=== PATIENT | female | born 1955 | race Caucasian/White ===

== ENCOUNTER 2018-06-11 09:56 | Emergency (ER) | payer MEDICARE ==
--- NOTE | 2018-06-11 11:11 | RAD ---
RIGHT ANKLE 3 VIEWS: Date: 06/11/18 INDICATION: Traumatic pain. FINDINGS: There is asymmetric soft tissue prominence of the lateral aspect of the right ankle. There is no disc rete evidence for displaced fracture. Calcaneal enthesophyte formation is seen. IMPRESSION: Asymmetric mild soft tissue prominence of the lateral aspect of the right ankle without underlying di splaced fracture. If findings persist, suggest short-term follow-up in 5-7 days to exclude an occult injury. POS: [facility]
--- NOTE | 2018-06-11 11:15 | RAD ---
AP PELVIS: Date: 06/11/18 INDICATION: Trauma with pelvic pain. FINDINGS: No definite displaced pelvic fracture is evident. There is mild degenerative change of both hips. IMPRESSION: No acute osseous abnormality. POS: [facility]
--- NOTE | 2018-06-11 11:17 | RAD ---
4 VIEWS LEFT KNEE: Date: 06/11/18 HISTORY: Post-traumatic pain. COMPARISON: None. FINDINGS: Small suprapatellar effusion. Mild degenerative changes of the patellofemoral compartment and lateral compartment. Medial compartment is intact. The lateral margin of the tibial plateau appears to be slightly demineralized and possibly irregular. The possibility of a cortical irregularity/injury cannot be excluded. Further interrogation with CT is recommended to evaluate for a lateral tibial plateau fracture. Old injury to the patella is noted. IMPRESSION: Possible lateral tibial plateau fracture. POS: [facility]
--- NOTE | 2018-06-11 11:18 | RAD ---
LEFT HAND 3 VIEWS: Date: 06/11/18 HISTORY: Trauma to hand. FINDINGS: There is a buckle-type fracture of the distal radius. I do not see a definite associated ulnar fractu re. There are arthritic changes of the hand and wrist. IMPRESSION: Buckle fracture distal radius. POS: [facility]
--- NOTE | 2018-06-11 15:18 | CT ---
CT OF THE LEFT KNEE WITHOUT CONTRAST: Date: 06/11/18 INDICATION: Slipped and fell, left knee pain. COMPARISON: Left knee radiograph dated 06/01/18. FINDINGS: There are small subchondral cyst-like abnormalities involving the lateral and posterolateral aspect o f the tibial plateau suspicious for subchondral degenerative change. There is some slight depression of the posterolateral aspect of the tibial plateau best seen on image 37 of the coronal series, suspi cious for remote impaction of the articular surface of the posterolateral tibial plateau. There is a small joint effusion. There is mild osteoarthrosis of the left knee. There is healed deformity involv ing the patella. No enlarged lymph nodes are evident. IMPRESSION: 1. Healed post-traumatic deformity involving the patella. 2. Suspicion for subchondral cyst-like abnormalities with slight irregular contour to the articular surface posterolateral tibial plateau suspicious for sequelae of remote trauma to the posterolateral tibial plateau. No definite acute fracture is seen. 3. Mild joint capsular distention. 4. Mild osteoarthrosis of the left knee. POS: [facility]
== END 2018-06-11 12:28 | disposition home or self-care (01) ==
LOC: MADERS 09:56
DX: S52.522A Torus fracture of lower end of left radius, initial encounter for closed fracture (principal); S52.602A Unspecified fracture of lower end of left ulna, initial encounter for closed fracture; S93.401A Sprain of unspecified ligament of right ankle, initial encounter; S30.0XXA Contusion of lower back and pelvis, initial encounter; K21.9 Gastro-esophageal reflux disease without esophagitis; J44.9 Chronic obstructive pulmonary disease, unspecified; F41.9 Anxiety disorder, unspecified; F31.9 Bipolar disorder, unspecified; F17.210 Nicotine dependence, cigarettes, uncomplicated; Z79.899 Other long term (current) drug therapy; Z79.82 Long term (current) use of aspirin; W10.9XXA Fall (on) (from) unspecified stairs and steps, initial encounter
CPT/HCPCS: 72170

== ENCOUNTER 2019-06-13 14:59 | Emergency (ER) | payer MEDICARE | END 2019-06-13 15:58 | disposition home or self-care (01) | LOC: MADERS 14:59 | DX: H92.01 Otalgia, right ear (principal); J02.9 Acute pharyngitis, unspecified; K21.9 Gastro-esophageal reflux disease without esophagitis; M19.90 Unspecified osteoarthritis, unspecified site; J44.9 Chronic obstructive pulmonary disease, unspecified; F41.9 Anxiety disorder, unspecified; F31.9 Bipolar disorder, unspecified; Z87.891 Personal history of nicotine dependence; Z79.82 Long term (current) use of aspirin; Z79.899 Other long term (current) drug therapy | CPT/HCPCS: 99282 ==

== ENCOUNTER 2020-04-04 12:54 | Emergency (ER) | payer MEDICARE ==
--- NOTE | 2020-04-04 13:39 | RAD ---
EXAM: 3 views of the left shoulder HISTORY: Shoulder pain COMPARISON: None FINDINGS: The patient is status post left shoulder arthroplasty. There is a fracture adjacent to the humeral stem but this may be chronic as it appears well corticated. No other areas of acute fracture or dislocation are suspected. IMPRESSION: No evidence of acute osseous abnormality.
--- NOTE | 2020-04-04 13:49 | RAD ---
XR Elbow Lt 4 View STANDARD History: Fall. Pain Comparison: None. Findings: No significant joint effusion. No acute fracture or malalignment. The radial head and neck are intact. Mild atherosclerotic change of the common extensor tendon. Impression: Chronic findings. No acute osseous abnormality.
--- NOTE | 2020-04-04 14:00 | RAD ---
LEFT WRIST 3 VIEWS: HISTORY: Fell out of bed, left wrist pain. FINDINGS: No acute fracture or dislocation is identified. If symptoms do not improve, a followup exam should be obtained in 7-10 days. POS: [facility]
== END 2020-04-04 14:25 | disposition home or self-care (01) ==
LOC: MADERS 12:54
DX: S63.502A Unspecified sprain of left wrist, initial encounter (principal); S40.012A Contusion of left shoulder, initial encounter; S50.02XA Contusion of left elbow, initial encounter; K74.60 Unspecified cirrhosis of liver; K21.9 Gastro-esophageal reflux disease without esophagitis; J44.9 Chronic obstructive pulmonary disease, unspecified; M19.90 Unspecified osteoarthritis, unspecified site; F41.9 Anxiety disorder, unspecified; F31.9 Bipolar disorder, unspecified; F17.210 Nicotine dependence, cigarettes, uncomplicated; Z79.899 Other long term (current) drug therapy; Z79.82 Long term (current) use of aspirin; W06.XXXA Fall from bed, initial encounter
CPT/HCPCS: 29125

== ENCOUNTER 2020-11-25 10:24 | Emergency (ER) | payer MEDICARE ==
[2020-11-25 21:07] LABS: SARS-CoV-2 PCR by NAA Not Detected (NotDetected)
== END 2020-11-25 11:54 | disposition home or self-care (01) ==
LOC: MADERS 10:24
DX: J44.1 Chronic obstructive pulmonary disease with (acute) exacerbation (principal); J01.00 Acute maxillary sinusitis, unspecified; Z20.822 Contact with and (suspected) exposure to COVID-19; E03.9 Hypothyroidism, unspecified; K21.9 Gastro-esophageal reflux disease without esophagitis; J44.9 Chronic obstructive pulmonary disease, unspecified; K74.60 Unspecified cirrhosis of liver; F17.210 Nicotine dependence, cigarettes, uncomplicated; M19.90 Unspecified osteoarthritis, unspecified site; Z79.899 Other long term (current) drug therapy
CPT/HCPCS: 71045; U0003; U0005; 87635

== ENCOUNTER 2020-12-07 10:50 | Outpatient (CLI) | payer MEDICARE | END 2020-12-07 10:51 | disposition home or self-care (01) | LOC: MADRAD 10:50 | PROVIDERS: ATTEND Family Medicine | DX: M25.532 Pain in left wrist (principal); S62.032D Displaced fracture of proximal third of navicular [scaphoid] bone of left wrist, subsequent encounter for fracture with routine healing ==

== ENCOUNTER 2021-04-17 13:34 | Outpatient (CLI) | payer MEDICARE ==
[2021-04-19 17:42] LABS: HPV High Risk Type 16 Negative (Negative); HPV High Risk Type 18 Negative (Negative)
[2021-04-19 18:15] LABS: HPV Other High Risk Types Negative (Negative)
== END 2021-04-17 13:35 | disposition home or self-care (01) ==
LOC: MADLAB 13:34
PROVIDERS: ATTEND Family Medicine
DX: Z00.01 Encounter for general adult medical examination with abnormal findings (principal)
CPT/HCPCS: 87624; 88142; G0123

== ENCOUNTER 2022-01-10 05:43 | Outpatient (CLI) | payer MEDICARE ==
[2022-01-10 06:31] LABS: Glucose 141 mg/dL (80-115)
[2022-01-10 11:21] LABS: Hemoglobin A1c 6.3 % (4.0-6.0)
== END 2022-01-10 05:44 | disposition home or self-care (01) ==
LOC: MADLAB 05:43
PROVIDERS: ATTEND Family Medicine
DX: I10 Essential (primary) hypertension (principal); R73.01 Impaired fasting glucose
CPT/HCPCS: 82947; 83036

== ENCOUNTER 2022-03-08 06:34 | Outpatient (CLI) | payer MEDICARE | END 2022-03-08 06:35 | disposition home or self-care (01) | LOC: MADRAD 06:34 | PROVIDERS: ATTEND Family Medicine | DX: Z01.818 Encounter for other preprocedural examination (principal) | CPT/HCPCS: 93005; 93010 ==

== ENCOUNTER 2022-10-31 13:08 | Emergency (ER) | payer OTHER ==
[2022-10-31 14:28] LABS: #Basophils 0.1 thou/uL (0.0-0.2); #Eosinphils 0.2 thou/uL (0.0-0.7); #Lymphocytes 2.5 thou/uL (1.20-3.40); #Monocytes 0.8 thou/uL (0.11-0.59); #Neutrophils 5.2 thou/uL (1.40-6.50); %Basophils 1.5 % (0.0-1.0); %Eosinophils 1.8 % (0.0-10.0); %Lymphocytes 27.9 % (21.0-51.0); %Monocytes 9.1 % (0.0-10.0); %Neutrophils 59.7 % (42.0-75.0); Hemoglobin 10.9 g/dL (12.0-16.0); Mean Corpuscular HGB CONC 32.6 g/dL (32.0-36.0); Mean Corpuscular Volume 76.7 fl (78.0-98.0); Mean Platelet Volume 8.5 fL (7.4-10.4); Platelet Count 190 10x3/uL (130-400); RBC Distribution Width 14.9 % (11.5-14.5); Red Blood Cell (RBC) Count 4.36 mill/uL (4.20-5.40); White Blood Cell (WBC) Count 8.8 10x3/uL (4.8-10.8)
[2022-10-31 14:30] LABS: ALT (SGPT) 21 U/L (8-55); AST (SGOT) 34 U/L (5-34); Albumin 3.7 g/dL (3.4-4.8); Alkaline Phosphatase 78 U/L (40-110); Anion Gap 13 mmol/L (10-20); BUN (Urea Nitrogen) 8 mg/dL (9.8-20.1); Bilirubin, Total 0.4 mg/dL (0.2-1.2); Calc. Creatinine Clearance 0 mL/min (70-130); Carbon Dioxide 22 mmol/L (23-31); Chloride 100 mmol/L (98-107); Estimated GFR 56; Globulin 4.2 g/dL (2.4-3.5); Glucose 110 mg/dL (80-115); Magnesium 1.7 mg/dL (1.6-2.6); Potassium 5.3 mmol/L (3.5-5.1); Protein, Total 7.9 g/dL (5.8-8.1); Sodium 130 mmol/L (136-145)
[2022-10-31] MEDS ORDERED: Lactated Ringer's 1,000 ML ONE (15:23)
== END 2022-10-31 17:04 | disposition home or self-care (01) ==
LOC: MADERS 13:08
DX: E86.0 Dehydration (principal); D64.9 Anemia, unspecified; E83.52 Hypercalcemia; E87.5 Hyperkalemia; E87.6 Hypokalemia; K21.9 Gastro-esophageal reflux disease without esophagitis; M19.90 Unspecified osteoarthritis, unspecified site; F17.210 Nicotine dependence, cigarettes, uncomplicated
CPT/HCPCS: 36415; 80053; 83735; 84443; 85025; 93005; 96360; J7120

== ENCOUNTER 2023-06-04 11:55 | Emergency (ER) | payer OTHER ==
[2023-06-04 12:42] LABS: #Basophils 0.1 thou/uL (0.0-0.2); #Eosinphils 0.1 thou/uL (0.0-0.7); #Lymphocytes 1.2 thou/uL (1.20-3.40); #Monocytes 0.5 thou/uL (0.11-0.59); #Neutrophils 2.5 thou/uL (1.40-6.50); %Basophils 1.4 % (0.0-1.0); %Eosinophils 2.7 % (0.0-10.0); %Lymphocytes 27.4 % (21.0-51.0); %Monocytes 11.9 % (0.0-10.0); %Neutrophils 56.6 % (42.0-75.0); Hematocrit 35.3 % (36.0-47.0); Hemoglobin 11.2 g/dL (12.0-16.0); Mean Corpuscular HGB CONC 31.8 g/dL (32.0-36.0); Mean Corpuscular Hemoglobin 29.3 pg (27.0-31.0); Mean Corpuscular Volume 92.1 fl (78.0-98.0); Mean Platelet Volume 10.7 fL (7.4-10.4); Platelet Count 105 10x3/uL (130-400); Red Blood Cell (RBC) Count 3.83 mill/uL (4.20-5.40); White Blood Cell (WBC) Count 4.5 10x3/uL (4.8-10.8)
[2023-06-04 12:49] LABS: INR-International Normal Ratio 1.1; Prothrombin Time 14.2 sec (12.0-14.7)
[2023-06-04 12:50] LABS: PTT 35.3 sec (22.9-36.1)
[2023-06-04 12:52] LABS: D-Dimer Test 1.37 *mcg/mL (0.27-0.43)
[2023-06-04 12:59] LABS: ALT (SGPT) 22 U/L (8-55); AST (SGOT) 30 U/L (5-34); Albumin 3.2 g/dL (3.4-4.8); Alkaline Phosphatase 79 U/L (40-110); Anion Gap 12 mmol/L (10-20); BUN (Urea Nitrogen) 4 mg/dL (9.8-20.1); Bilirubin, Total 0.4 mg/dL (0.2-1.2); Calc. Creatinine Clearance 0 mL/min (70-130); Calcium 10.2 mg/dL (7.8-10.44); Carbon Dioxide 22 mmol/L (23-31); Chloride 103 mmol/L (98-107); Estimated GFR 81; Globulin 3.5 g/dL (2.4-3.5); Glucose 113 mg/dL (80-115); Protein, Total 6.7 g/dL (5.8-8.1); Sodium 133 mmol/L (136-145)
[2023-06-04 13:01] LABS: Bilirubin Negative (Negative); Blood, Urine Negative (Negative); Clarity Clear (Clear); Glucose, Urine (Dipstick) Negative (Negative); Ketone, Urine Negative (Negative); Leukocyte Small (Negative); Nitrite Negative (Negative); Protein, Urine (Dipstick) Negative (Neg-Trace); Urobilinogen 0.2 mg/dL (Less than 2)
[2023-06-04 13:02] LABS: Anisocytosis SLIGHT = 6-15 cells (100X) (0-5/hpf); Platelet Adequacy Comment Appears Decreased
[2023-06-04 13:03] LABS: Specific Gravity, Urine 1.005 (1.002-1.036)
[2023-06-04 13:04] LABS: Bacteria/HPF Rare-Few HPF (None Seen); CAUTI Indications for Culture Dysuria,urgency,freq; RBC/HPF 0-3 HPF (0-3); Squamous Epithelial 0-3 HPF (0-3)
[2023-06-04 13:06] LABS: Urine Culture Reflex No No
== END 2023-06-04 13:48 | disposition home or self-care (01) ==
LOC: MADERS 11:55
DX: R60.0 Localized edema (principal); D61.818 Other pancytopenia; R79.1 Abnormal coagulation profile; K21.9 Gastro-esophageal reflux disease without esophagitis; E78.5 Hyperlipidemia, unspecified; I10 Essential (primary) hypertension; E66.9 Obesity, unspecified; J44.9 Chronic obstructive pulmonary disease, unspecified; F17.210 Nicotine dependence, cigarettes, uncomplicated; Z79.899 Other long term (current) drug therapy
CPT/HCPCS: 71045; 80053; 81001; 83880; 85025; 85379; 85610; 85730; 86140; 93005

== ENCOUNTER 2024-01-08 12:20 | Outpatient (CLI) | payer MEDICARE, OTHER | END 2024-01-08 12:21 | disposition home or self-care (01) | LOC: MADRAD 12:20 | PROVIDERS: ATTEND Family Medicine | DX: M79.641 Pain in right hand (principal); Z98.1 Arthrodesis status ==

== ENCOUNTER 2024-02-10 10:26 | Outpatient (CLI) | payer MEDICARE, OTHER | END 2024-02-10 10:27 | disposition home or self-care (01) | LOC: MADLAB 10:26 | PROVIDERS: ATTEND Family Medicine | DX: M79.644 Pain in right finger(s) (principal) ==

== ENCOUNTER 2024-03-11 11:24 | Outpatient (CLI) | payer OTHER | END 2024-03-11 11:25 | disposition home or self-care (01) | LOC: MADRAD 11:24 | PROVIDERS: ATTEND Family Medicine | DX: M25.532 Pain in left wrist (principal); M25.512 Pain in left shoulder; M25.522 Pain in left elbow; M54.2 Cervicalgia; M79.644 Pain in right finger(s) | CPT/HCPCS: 72040 ==

== ENCOUNTER 2024-04-03 11:21 | Emergency (ER) | payer OTHER | END 2024-04-03 14:05 | disposition home or self-care (01) | LOC: MADERS 11:21 | DX: S42.201A Unspecified fracture of upper end of right humerus, initial encounter for closed fracture (principal); I10 Essential (primary) hypertension; F17.210 Nicotine dependence, cigarettes, uncomplicated; W18.30XA Fall on same level, unspecified, initial encounter | CPT/HCPCS: 70450 ==

== ENCOUNTER 2024-04-29 09:08 | Outpatient (CLI) | payer OTHER | END 2024-04-29 09:09 | disposition home or self-care (01) | LOC: MADLAB 09:08 | PROVIDERS: ATTEND Family Medicine | DX: S09.90XA Unspecified injury of head, initial encounter (principal) | CPT/HCPCS: 70450 ==

== ENCOUNTER 2024-05-28 07:10 | Emergency (ER) | payer OTHER ==
[2024-05-28] MEDS ORDERED: Lidocaine 1% w/Epinephrine 1:100K 20 ML VIAL ONE (07:43)
[2024-05-28] MEDS ORDERED: Bacitracin 1 PK ONE (07:43)
[2024-05-28] MEDS ORDERED: Boostrix 0.5 ML (Tdap) VIAL (>/=7 yrs of age) ONE (07:44)
[2024-05-28] MEDS ORDERED: Acetaminophen 325 MG TAB ONE (07:45)
== END 2024-05-28 09:40 | disposition home or self-care (01) ==
LOC: MADERS 07:10
DX: S52.021A Displaced fracture of olecranon process without intraarticular extension of right ulna, initial encounter for closed fracture (principal); S81.812A Laceration without foreign body, left lower leg, initial encounter; S50.01XA Contusion of right elbow, initial encounter; S80.212A Abrasion, left knee, initial encounter; K21.9 Gastro-esophageal reflux disease without esophagitis; E78.5 Hyperlipidemia, unspecified; I10 Essential (primary) hypertension; J44.9 Chronic obstructive pulmonary disease, unspecified; F41.9 Anxiety disorder, unspecified; F31.9 Bipolar disorder, unspecified; K74.60 Unspecified cirrhosis of liver; K76.0 Fatty (change of) liver, not elsewhere classified; F17.210 Nicotine dependence, cigarettes, uncomplicated; W18.2XXA Fall in (into) shower or empty bathtub, initial encounter; Z79.899 Other long term (current) drug therapy
CPT/HCPCS: 12002; 29105; 70450; 72125; 72170; 90471; 90715

== ENCOUNTER 2024-06-03 11:12 | Emergency (ER) | payer OTHER ==
[2024-06-03 12:00] LABS: #Lymphocytes 1.2 thou/uL (1.20-3.40); #Monocytes 0.6 thou/uL (0.11-0.59); #Neutrophils 3.1 thou/uL (1.40-6.50); %Basophils 0.7 % (0.0-1.0); %Eosinophils 0.6 % (0.0-10.0); %Lymphocytes 24.6 % (21.0-51.0); %Monocytes 11.8 % (0.0-10.0); %Neutrophils 62.3 % (42.0-75.0); Anisocytosis SLIGHT = 6-15 cells (100X) (0-5/hpf); Hematocrit 28.5 % (36.0-47.0); Hemoglobin 8.8 g/dL (12.0-16.0); MDiff Complete? YES; Mean Corpuscular HGB CONC 30.9 g/dL (32.0-36.0); Mean Corpuscular Hemoglobin 24.2 pg (27.0-31.0); Mean Corpuscular Volume 78.6 fl (78.0-98.0); Mean Platelet Volume 7.5 fL (7.4-10.4); Platelet Count 143 10x3/uL (130-400); RBC Distribution Width 15.1 % (11.5-14.5); Red Blood Cell (RBC) Count 3.63 mill/uL (4.20-5.40); White Blood Cell (WBC) Count 4.9 10x3/uL (4.8-10.8)
[2024-06-03 12:10] LABS: ALT (SGPT) 14 U/L (8-55); AST (SGOT) 22 U/L (5-34); Albumin 3.3 g/dL (3.4-4.8); Alkaline Phosphatase 119 U/L (40-110); Anion Gap 15 mmol/L (10-20); BUN (Urea Nitrogen) 9 mg/dL (9.8-20.1); Bilirubin, Total 0.7 mg/dL (0.2-1.2); Calc. Creatinine Clearance 0 mL/min (70-130); Calcium 9.7 mg/dL (7.8-10.44); Carbon Dioxide 22 mmol/L (23-31); Chloride 102 mmol/L (98-107); Estimated GFR 70; Globulin 3.7 g/dL (2.4-3.5); Glucose 84 mg/dL (80-115); Potassium 3.6 mmol/L (3.5-5.1); Sodium 135 mmol/L (136-145)
[2024-06-03 12:11] LABS: Troponin I Less than 0.010 ng/mL (< 0.028)
[2024-06-03] MEDS ORDERED: Sodium Chloride 0.9% 100 ML ONE (12:30)
[2024-06-03] MEDS ORDERED: CEFAZOLIN 1 GM VIAL ONE (12:30)
[2024-06-03] MEDS ORDERED: Sodium Chloride 0.9% 1,000 ML ONE (12:30)
[2024-06-03 13:38] LABS: Bilirubin Negative (Negative); Blood, Urine Negative (Negative); Glucose, Urine (Dipstick) Negative (Negative); Ketone, Urine Negative (Negative); Leukocyte Small (Negative); Nitrite Negative (Negative); Protein, Urine (Dipstick) Negative (Neg-Trace); Specific Gravity, Urine 1.015 (1.005-1.030); Urobilinogen 0.2 mg/dL (Less than 2); pH, Urine 5.5 (5.0-9.0)
[2024-06-03 13:45] LABS: Bacteria/HPF Rare-Few HPF (None Seen); CAUTI Indications for Culture Alt mental st,lethar; Clarity Slightly Cloudy (Clear); RBC/HPF 0-3 HPF (0-3); WBC/HPF 21-50 HPF (0-3)
[2024-06-03 13:46] LABS: Urine Culture Reflex Yes Yes
[2024-06-03 13:48] LABS: Amphetamine Detected (NotDetected); Barbiturates Screen Not Detected (NotDetected); Benzodiazepine Screen Not Detected (NotDetected); Cocaine Metabolite Screen Not Detected (NotDetected); Methadone Not Detected (NotDetected); Methamphetamine Detected (NotDetected); Opiate Screen Detected (NotDetected); Oxycodone Screen Not Detected (NotDetected); Phencyclidine (PCP) Not Detected (NotDetected); THC/Cannabinoid Screen Not Detected (NotDetected); Tricyclic Screen Detected (NotDetected)
== END 2024-06-03 20:05 | disposition short-term general hospital (02) ==
LOC: MADERS 11:12
DX: S52.021A Displaced fracture of olecranon process without intraarticular extension of right ulna, initial encounter for closed fracture (principal); S42.211A Unspecified displaced fracture of surgical neck of right humerus, initial encounter for closed fracture; F15.20 Other stimulant dependence, uncomplicated; J44.9 Chronic obstructive pulmonary disease, unspecified; K21.9 Gastro-esophageal reflux disease without esophagitis; E78.5 Hyperlipidemia, unspecified; E03.9 Hypothyroidism, unspecified; F17.210 Nicotine dependence, cigarettes, uncomplicated; Z79.899 Other long term (current) drug therapy; Z79.890 Hormone replacement therapy; Z79.82 Long term (current) use of aspirin; W19.XXXA Unspecified fall, initial encounter
CPT/HCPCS: 36415; 70450; 71045; 80053; 80306; 81001; 83605; 83880; 84484; 85025; 87086; 93005; 96365; J0690; J7030